=== PATIENT | male | born 1985 | race African-American/Black ===

== ENCOUNTER 2017-01-04 22:25 | Emergency (ER) | payer BC ==
[~2017-01-04] VITALS: Ht 175.3 cm; Wt 73.0 kg
[2017-01-04 22:33] VITALS: BP 128/82
[2017-01-05] MEDS ORDERED: BACITRACIN ZINC OINT UDPKT TOP ONE
== END 2017-01-05 00:17 | disposition home or self-care (01) ==
LOC: ER 22:25
DX: S61.012A Laceration without foreign body of left thumb without damage to nail, initial encounter (principal); Z98.890 Other specified postprocedural states; W25.XXXA Contact with sharp glass, initial encounter; Y93.89 Activity, other specified; Y92.010 Kitchen of single-family (private) house as the place of occurrence of the external cause
CPT/HCPCS: 12001; 99283; Z7610